=== PATIENT | female | born 1990 | race Caucasian/White ===

== ENCOUNTER 2017-12-27 19:22 | Emergency (ER) | payer SELFPAY, OTHER | END 2017-12-27 19:33 | disposition left against medical advice (07) | LOC: E/R 19:22 | DX: Z53.21 Procedure and treatment not carried out due to patient leaving prior to being seen by health care provider (principal) ==

== ENCOUNTER 2018-02-05 18:17 | Inpatient (IN) | payer OTHER ==
[2018-02-05] MEDS: LACTATED RINGER'S 1,000 ML IV ×2 (20:30→21:22)
[2018-02-05 20:33] LABS: ADD UMIC NO; UR ASCORBIC ACID NEGATIVE (NEGATIVE); UR BILIRUBIN (Dip) NEGATIVE (NEGATIVE); UR BLOOD (Dip) NEGATIVE (NEGATIVE); UR CLARITY CLEAR (CLEAR); UR COLOR YELLOW (YELLOW); UR GLUCOSE (Dip) NEGATIVE (NEGATIVE); UR KETONES (Dip) NEGATIVE (NEGATIVE); UR LEUKOCYTE ESTERASE (Dip) NEGATIVE Leu/ul (NEGATIVE); UR NITRITE (Dip) NEGATIVE (NEGATIVE); UR SPECIFIC GRAVITY (Dip) 1.012 (1.003-1.030); UR TOTAL PROTEIN (Dip) NEGATIVE (NEGATIVE); UR UROBILINOGEN (Dip) NEGATIVE (NEGATIVE)
[2018-02-05] MEDS ORDERED: MISOPROSTOL 200 MCG TAB PR (23:30)
[2018-02-05] MEDS ORDERED: OXYTOCIN 30 UNITS/LR 500 ML IV ×2 (23:30)
[2018-02-05] MEDS ORDERED: METHYLERGONOVINE 0.2 MG INJ IM (23:30)
[2018-02-05] MEDS ORDERED: CEFAZOLIN 2 GM/50 ML (PMX) 50 ML IV (23:30)
[2018-02-05] MEDS ORDERED: CARBOPROST 250 MCG INJ IM (23:30)
[2018-02-05] MEDS: TERBUTALINE 1 MG/ML INJ SC (23:40)
[2018-02-06 00:34] LABS: ADD MAN DIFF? NO
[2018-02-06 00:37] LABS: WHITE BLOOD COUNT 9.7 10^3/ul (4.8-10.8)
[2018-02-06 00:37] LABS: BASOPHILS % 0.3 % (0.0-2.0); EOSINOPHILS # 0.2 10^3/ul (0.0-0.5); EOSINOPHILS % 1.7 % (0.0-7.0); HEMATOCRIT 37.1 % (37.0-47.0); HEMOGLOBIN 11.9 g/dl (12.0-16.0); LYMPHOCYTES # 2.4 10^3/ul (0.8-2.9); LYMPHOCYTES % 24.8 % (15.0-51.0); MEAN CORPUSCULAR HEMOGLOBIN 28.7 pg (29.0-33.0); MEAN CORPUSCULAR HGB CONC 32.1 g/dl (32.0-37.0); MEAN CORPUSCULAR VOLUME 89.4 fl (82.0-101.0); MEAN PLATELET VOLUME 10.9 fl (7.4-10.4); MONOCYTE # 0.8 10^3/ul (0.3-0.9); MONOCYTES % 8.5 % (0.0-11.0); NEUTROPHIL # 6.1 10^3/ul (1.6-7.5); NEUTROPHILS % 63.2 % (39.0-77.0); PLATELET COUNT 266 10^3/UL (140-415); RED BLOOD COUNT 4.15 10^6/ul (4.20-5.40)
[2018-02-06 00:57] LABS: INR 0.85; PROTIME 11.7 Sec (11.9-14.9); PT RATIO 0.9
[2018-02-06 00:58] LABS: PARTIAL THROMBOPLASTIN TIME 27.5 Sec (25.0-35.0)
[2018-02-06 01:27] LABS: HEPATITIS B SURFACE ANTIGEN NEGATIVE (NEGATIVE)
[2018-02-06] MEDS: LACTATED RINGER'S 1,000 ML IV ×5 (04:44→20:14)
[2018-02-06] MEDS: AMPICILLIN 2 GM/NS (PMX) 100 ML IVPB (04:46)
[2018-02-06] MEDS ORDERED: OXYTOCIN 30 UNITS/LR 500 ML BAG IV (07:00)
[2018-02-06] MEDS ORDERED: TERBUTALINE 1 MG/ML INJ SC (08:30)
[2018-02-06] MEDS: AMPICILLIN 1 GM/NS (PMX) 50 ML IVPB ×3 (09:04→16:45)
[2018-02-06] MEDS ORDERED: BUPIVACAINE 0.75%/DEXT (SPINAL) 2 ML INJ (17:01)
[2018-02-06] MEDS ORDERED: FENTAnyl 50 MCG/ML VIAL (17:02)
[2018-02-06] MEDS ORDERED: morphine SULFATE/PF (10 MG/10 ML) INJ (17:02)
[2018-02-06] MEDS ORDERED: PHENYLephrine (100 MCG/ML) 10ML SYG (17:08)
[2018-02-06] MEDS ORDERED: DEXAMETHASONE 4 MG/ML 1 ML INJ (17:09)
[2018-02-06] MEDS ORDERED: ONDANSETRON 4 MG INJ (17:09)
[2018-02-06] MEDS: CEFAZOLIN 3 GM in DEXTROSE 5% 100 ML IV (18:15)
[2018-02-06] MEDS ORDERED: ZOLPIDEM 5 MG TAB PO (19:30)
[2018-02-06] MEDS ORDERED: NALOXONE (0.4 MG/ML) INJ IV (19:30)
[2018-02-06] MEDS ORDERED: ONDANSETRON 4 MG INJ IV (19:30)
[2018-02-06] MEDS ORDERED: HYDROmorphONE 0.5 MG/0.5 ML SYG IV ×2 (19:30)
[2018-02-06 19:43] LABS: RAPID PLASMA REAGIN NONREACTIVE (NR)
[2018-02-06] MEDS: DIPHENHYDRAMINE 50 MG INJ IV (21:37)
[2018-02-06] MEDS: KETOROLAC 30 MG INJ IV (22:45)
[2018-02-06] MEDS: CEFAZOLIN 1 GM/50 ML (PMX) 50 ML IVPB (22:45)
[2018-02-06] MEDS: OXYTOCIN 30 UNITS/LR 500 ML IV (22:55)
[2018-02-06] MEDS: SENNA/DOCUSATE NA (8.6MG/50MG) TAB PO (22:56)
[2018-02-06] MEDS ORDERED: MISOPROSTOL 200 MCG TAB PR (23:00)
[2018-02-06] MEDS ORDERED: HYDROCODONE/APAP (5/325) TAB PO ×2 (23:00)
[2018-02-06] MEDS ORDERED: CARBOPROST 250 MCG INJ IM (23:00)
[2018-02-06] MEDS ORDERED: OXYCODONE/ACETAMINOPHEN (5/325) TAB PO ×2 (23:00)
[2018-02-06] MEDS ORDERED: METHYLERGONOVINE 0.2 MG INJ IM (23:00)
[2018-02-06] MEDS ORDERED: OXYTOCIN 30 UNITS/LR 500 ML IV (23:00)
[2018-02-07] MEDS: OXYTOCIN 30 UNITS/LR 500 ML IV ×6 (03:24→22:32)
[2018-02-07] MEDS: LANOLIN 7 GM TUBE TOP (03:25)
[2018-02-07] MEDS: SENNA/DOCUSATE NA (8.6MG/50MG) TAB PO ×2 (08:10→21:44)
[2018-02-07 08:11] LABS: ADD MAN DIFF? NO
[2018-02-07 08:18] LABS: BASOPHILS % 0.2 % (0.0-2.0); EOSINOPHILS % 0.2 % (0.0-7.0); HEMATOCRIT 31.1 % (37.0-47.0); HEMOGLOBIN 10.5 g/dl (12.0-16.0); LYMPHOCYTES # 2.7 10^3/ul (0.8-2.9); LYMPHOCYTES % 20.9 % (15.0-51.0); MEAN CORPUSCULAR HEMOGLOBIN 29.3 pg (29.0-33.0); MEAN CORPUSCULAR HGB CONC 33.8 g/dl (32.0-37.0); MEAN CORPUSCULAR VOLUME 86.9 fl (82.0-101.0); MEAN PLATELET VOLUME 10.3 fl (7.4-10.4); MONOCYTE # 0.9 10^3/ul (0.3-0.9); MONOCYTES % 6.7 % (0.0-11.0); NEUTROPHIL # 9.3 10^3/ul (1.6-7.5); NEUTROPHILS % 71.4 % (39.0-77.0); PLATELET COUNT 223 10^3/UL (140-415); RED BLOOD COUNT 3.58 10^6/ul (4.20-5.40); RED CELL DISTRIBUTION WIDTH 13.5 % (11.5-14.5)
[2018-02-07] MEDS: LACTATED RINGER'S 1,000 ML IV (12:45)
[2018-02-07] MEDS: IBUPROFEN 600 MG TAB PO (18:09)
[2018-02-08] MEDS: IBUPROFEN 600 MG TAB PO ×4 (00:25→17:27)
[2018-02-08] MEDS: OXYTOCIN 30 UNITS/LR 500 ML IV ×2 (02:32→06:32)
[2018-02-08] MEDS: SENNA/DOCUSATE NA (8.6MG/50MG) TAB PO ×2 (09:00→21:19)
[2018-02-09] MEDS: IBUPROFEN 600 MG TAB PO ×2 (00:24→06:07)
[2018-02-09] MEDS: SENNA/DOCUSATE NA (8.6MG/50MG) TAB PO (09:00)
[2018-02-09] MEDS: DIPHTH/TET/ACEL PERTUSS (ADULT) 0.5 ML VIAL IM* (09:03)
== END 2018-02-09 11:35 | disposition home or self-care (01) | DRG 765 ==
LOC: OBT 18:17 → L-D 02-06 02:02 → OBT 23:00 → PP1 02-06 22:26 → L-D 23:00
PROC: 10D00Z1 Extraction of Products of Conception, Low, Open Approach (ICD-10-PCS; principal; 2018-02-06 17:15)
PROC: 0UB70ZZ Excision of Bilateral Fallopian Tubes, Open Approach (ICD-10-PCS; 2018-02-06 17:15)
DX: O34.211 Maternal care for low transverse scar from previous cesarean delivery (principal); Z68.42 Body mass index [BMI] 45.0-49.9, adult; O99.214 Obesity complicating childbirth; E66.9 Obesity, unspecified; O99.824 Streptococcus B carrier state complicating childbirth; Z3A.37 37 weeks gestation of pregnancy; Z37.0 Single live birth; Z30.2 Encounter for sterilization
CPT/HCPCS: 36415; 76818; 81003; 85025; 85610; 85730; 86592; 86850; 86900; 86901; 87086; 87340; 88302; 96360; 96361; 96372; 99464